=== PATIENT | male | born 1970 | race African-American/Black ===

== ENCOUNTER 2017-07-23 10:44 | Emergency (ER) | payer SELFPAY ==
[2017-07-23] MEDS ORDERED: Ketorolac Tromethamine 30 MG/ML VIAL ONE (12:10)
--- NOTE | 2017-07-23 13:56 | RAD ---
AP CHEST WITH THREE VIEWS OF THE LEFT CHEST WALL: Indication: Concern for a left sided rib fracture. Patient having pain of the left 7th rib and is ten lg to palpation along left chest wall. FINDINGS: On the chest radiographic examination, the lungs are clear. No pneumothorax is evident. No pleural ef fusion is evident. Cardiomediastinal silhouette is within normal limits. No displaced left sided rib fracture is evident. IMPRESSION: No displaced left sided rib fracture. No acute cardiopulmonary abnormality. POS: [facility]
== END 2017-07-23 13:10 | disposition home or self-care (01) ==
LOC: MADERS 10:44
DX: S20.212A Contusion of left front wall of thorax, initial encounter (principal); I10 Essential (primary) hypertension; W22.8XXA Striking against or struck by other objects, initial encounter
CPT/HCPCS: 96372; J1885

== ENCOUNTER 2018-05-27 13:35 | Emergency (ER) | payer OTHER, SELFPAY ==
[2018-05-27] MEDS ORDERED: cloNIDine 0.1 MG TAB ONE (14:01)
== END 2018-05-27 14:38 ==
LOC: MADERS 13:35
DX: I10 Essential (primary) hypertension (principal); Z79.899 Other long term (current) drug therapy

== ENCOUNTER 2021-04-29 13:12 | Emergency (ER) | payer BC, OTHER, SELFPAY ==
[2021-04-29 13:45] LABS: Bilirubin Negative (Negative); Blood, Urine Trace (Negative); Clarity Clear (Clear); Glucose, Urine (Dipstick) Negative (Negative); Ketone, Urine Negative (Negative); Leukocyte Negative (Negative); Nitrite Negative (Negative); Protein, Urine (Dipstick) Negative (Neg-Trace); Specific Gravity, Urine 1.015 (1.005-1.030); Urobilinogen 0.2 mg/dL (Less than 2); pH, Urine 5.5 (5.0-9.0)
[2021-04-29 13:46] LABS: Bacteria/HPF Rare-Few HPF (None Seen); RBC/HPF 0-3 HPF (0-3); Squamous Epithelial 0-3 HPF (0-3); WBC/HPF 0-3 HPF (0-3)
[2021-04-29 14:02] LABS: ALT (SGPT) 23 U/L (8-55); AST (SGOT) 23 U/L (5-34); Albumin 4.2 g/dL (3.5-5.0); Alkaline Phosphatase 120 U/L (40-110); Anion Gap 12 mmol/L (10-20); BUN (Urea Nitrogen) 13 mg/dL (8.4-25.7); Bilirubin, Total 0.4 mg/dL (0.2-1.2); Calc. Creatinine Clearance 0 mL/min (70-130); Calcium 9.3 mg/dL (7.8-10.44); Carbon Dioxide 26 mmol/L (22-29); Chloride 108 mmol/L (98-107); Globulin 2.8 g/dL (2.4-3.5); Glucose 88 mg/dL (70-105); Potassium 3.9 mmol/L (3.5-5.1); Sodium 142 mmol/L (136-145)
[2021-04-29 14:03] LABS: Eosinophils 2 % (0-10); Hemoglobin 14.8 g/dL (14.0-18.0); Lymphocytes 55 % (21-51); MDiff Complete? YES; Mean Corpuscular HGB CONC 31.7 g/dL (32.0-36.0); Mean Corpuscular Hemoglobin 28.3 pg (27.0-31.0); Mean Corpuscular Volume 89.3 fL (78.0-98.0); Mean Platelet Volume 8.1 fL (7.4-10.4); Monocytes 8 % (0-10); Neutrophil 35 % (42-75); Platelet Count 195 thou/uL (130-400); Platelet Morphology Comment Appears Adequate; RBC Distribution Width 13.4 % (11.5-14.5); RBC Morphology Normal; Red Blood Cell (RBC) Count 5.22 mill/uL (4.70-6.10); White Blood Cell (WBC) Count 14.9 thou/uL (4.8-10.8)
== END 2021-04-29 14:15 | disposition home or self-care (01) ==
LOC: MADERS 13:12
DX: R31.9 Hematuria, unspecified (principal); I10 Essential (primary) hypertension; E78.5 Hyperlipidemia, unspecified; E78.00 Pure hypercholesterolemia, unspecified; Z87.891 Personal history of nicotine dependence
CPT/HCPCS: 36415; 80053; 81003; 81015; 85025; 99283

== ENCOUNTER 2024-12-13 22:31 | Emergency (ER) | payer OTHER, SELFPAY | END 2024-12-13 22:54 | disposition home or self-care (01) | LOC: MADERS 22:31 | DX: M79.674 Pain in right toe(s) (principal); I10 Essential (primary) hypertension; Z87.891 Personal history of nicotine dependence | CPT/HCPCS: 99283 ==